=== PATIENT | female | born 1985 | race Two or more races ===

== ENCOUNTER 2025-07-13 05:47 | Inpatient (IN) | payer BC, OTHER ==
[~2025-07-13] VITALS: Ht 162.6 cm; Wt 117.0 kg
--- NOTE | 2025-07-13 06:23 | ED.PDOC ---
GI ASSESSMENT HPI Comments 40 y.o female with PMHx of DM, presents to the ED for a chief complaint of right sided abdominal pain associated with nausea that started one day ago. Patient describes pain as sharp, constant, radiating to her back and rates it a 10/10 on the pain scale. Patient denies any diarrhea, fever, chills, vomiting. 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 ASSISTANT 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: No 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 History Family History Family History: Reviewed,noncontributory to illness Social History Smoker: Non-Smoker Alcohol: Denies ETOH Use Drugs: Denies Drug Use Lives In: Home Constitutional: denies: chills, diaphoresis, fatigue, fever, malaise, sweats, weakness, others EENTM: denies: blurred vision, double vision, ear bleeding, ear discharge, ear drainage, ear pain, ear ringing, eye pain, eye redness, hearing loss, mouth pain, mouth swelling, nasal discharge, nose bleeding, nose congestion, nose pain, photophobia, tearing, throat pain, throat swelling, voice changes, others Respiratory: denies: cough, hemoptysis, orthopnea, SOB at rest, shortness of breath, SOB with excertion, stridor, wheezing, others Cardiovascular: denies: chest pain, dizzy spells, diaphoresis, Dyspnea on exertion, edema, irregular heart beat, left arm pain, lightheadedness, palpitations, PND, syncope, others Gastrointestinal: reports: abdominal pain, nausea; denies: abdomen distended, blood streaked bowels, constipated, diarrhea, dysphagia, difficulty swallowing, hematemesis, melena, poor appetite, poor fluid intake, rectal bleeding, rectal pain, vomiting, others Genitourinary: denies: abnormal vagina bleeding, burning, dyspareunia, dysuria, flank pain, frequency, hematuria, incontinence, pain, , vagina discharge, urgency, others Neurological: denies: dizziness, fainting, headache, left sided numbness, left sided weakness, numbness, paresthesia, pre-existing deficit, right sided numbness, right sided weakness, seizure, speech problems, tingling, tremors, weakness, others Musculoskeletal: denies: back pain, gout, joint pain, joint swelling, muscle pain, muscle stiffness, neck pain, others Integumetry: denies: bruises, change in color, change in hair/nails, dryness, laceration, lesions, lumps, rash, wounds, others Allergic/Immunocompromised: denies: Difficulty Healing, Frequent Infections, Hi ves, Itching, others Hematologic/Lymphatic: denies: anemia, blood clots, easy bleeding, easy bruising, swollen glands, others Endocrine: denies: excessive hunger, excessive sweating, excessive thirst, excessive urination, flushing, intolerance to cold, intolerance to heat, unexplained weight gain, unexplained weight loss, others Psychiatric: denies: anxiety, bipolar disorder, depression, hopeless, panic disorder, schizophrenia, sleepless, suicidal, others All Other Systems: Reviewed and Negative Physical Exam General Appearance: Moderate Distress, Obese HEENT: Normal ENT Inspection, Pharynx Normal, TMs Normal Neck: Full Range of Motion, Non-Tender, Normal, Normal Inspection Respiratory: Chest Non-Tender, Lungs Clear, No Accessory Muscle Use, No Respiratory Distress, Normal Breath Sounds Cardiovascular: No Edema, No JVD, No Murmur, No Gallop, Normal Peripheral Pulses, Regular Rate/Rhythm Breast Exam: Deferred Gastrointestinal: No Organomegaly, Non Tender, No Pulsatile Mass, Normal Bowel Sounds, Soft Genitalia: Deferred Pelvic: Deferred Rectal: Deferred Extremities: No calf tenderness, Normal capillary refill, Normal inspection, Normal range of motion, Non-tender, No pedal edema Musculoskeletal : Apperance: Normal Neurologic: Alert, medical secretary receptionist II-XII nml as Tested, No Motor Deficits, Normal Affect, Normal Mood, No Sensory Deficits Cerebellar Function: Normal Reflexes: Normal Skin: Dry, Normal Color, Warm Peripheral Pulses: 3+ Radial (R), 3+ Radial (L) Lymphatic: No Adenopathy Was a procedure done? Was a procedure done?: No GI differential Dx Differential Diagnosis: Cholecystitis, Constipation, Diverticular disease, Esophagitis, Gastritis/PUD, Gastroenteritis, Dehydration, Kidney Stone Other Differential Diagnosis colitis X-Ray, Labs, Meds, VS Vital Signs Date Time Temp Pulse Resp B/P (MAP) Pulse Ox O2 Delivery O2 Flow Rate FiO2 07/13/25 06:24 97.4 86 14 162/74 (103) 99 97.4 07/13/25 05:52 97.5 88 18 149/83 97 97.5 Patient alert. Came in because of abdominal pain. Vitals stable. Answering questions. Establish intravenous access. Was given fluids. Was given morphine. Was given Zofran. Explained to the patient. Continue monitoring. Time of 1ST Reevaluation: 07:20 Reevaluation 1ST: Unchanged Patient Education/Counseling: Diagnosis, Treatment, Prognosis Family Education/Counseling: No Family Present SEPSIS Sepsis Screen Date sepsis recognized/suspect: Jul 13, 2025 Time Sepsis recognized/suspect: 0552 Recent Procedure: No On Antibiotic Therapy: No Respiratory Rate >20: No Heart Rate >90: No Temp<36 C (96.8 F) or >38.3 C: No SBP <90 or MAP <65 mmHG: No New Acute Mental Status Change: No Is the patient on CPAP, BIPAP,: No Physician Orders Complete Blood Count (07/13/25 06:40) Comprehensive Metabolic Panel (07/13/25 06:40) Urinalysis (07/13/25 06:40) Ondansetron Hcl (Zofran) (07/13/25 06:45) Sodium Chloride 0.9% (07/13/25 06:45) Morphine Sulfate Injection (07/13/25 06:45) Vital Signs Date Time Temp Pulse Resp B/P (MAP) Pulse Ox O2 Delivery O2 Flow Rate FiO2 07/13/25 06:24 97.4 86 14 162/74 (103) 99 97.4 07/13/25 05:52 97.5 88 18 149/83 97 97.5 Departure 1 Departure Time of Disposition: 06:43 Impression: Primary Impression: Acute abdominal pain Disposition: ADMITTED INPATIENT Admit to: Med Surg Condition: Guarded Critical Care Note Critical Care Time?: No Stability Stability form required: No I personally scribed for ANTONINO MENDEZ MD ([email or web address]) on 07/13/25 at 06:23. Electronically submitted by Ro Leach ([facility]). ANTONINO MENDEZ MD Jul 13, 2025 06:23
[2025-07-13] MEDS: SODIUM CHLORIDE 0.9% 1,000 ML IVB ONE (06:45)
[2025-07-13] MEDS: ONDANSETRON HCL 4 MG/2 ML VIAL IV ONE (06:45)
[2025-07-13] MEDS: MORPHINE SULFATE 4 MG/ML SYR/VIAL IV ONE (06:46)
[2025-07-13 06:58] LABS: Hematocrit 35.5 % (36.0-46.0); Hemoglobin 11.7 g/dL (12.2-16.2); Mean Corpuscular Hemoglobin 26.0 pg (28.0-32.0); Mean Corpuscular Volume 79.0 fL (80.0-100.0); Nucleated Red Blood Cells % 0.0 %
[2025-07-13 07:17] LABS: Alanine Aminotransferase 16 U/L (7-40); Albumin 4.4 g/dL (3.2-4.8); Alkaline Phosphatase 133 U/L (46-116); Anion Gap 10 (5-15); BUN/Creatinine Ratio 16.0 (10.0-20.0); Bilirubin, Total 0.2 mg/dL (0.2-1.0); Blood Urea Nitrogen 15 mg/dL (9-23); Calcium 9.5 mg/dL (8.7-10.4); Carbon Dioxide 25 mmol/L (20-31); Chloride 101 mmol/L (98-107); Glucose 270 mg/dL (74-106); Potassium 4.2 mmol/L (3.5-5.1); Sodium 136 mmol/L (136-145); Total Protein 7.5 g/dL (5.7-8.2)
[2025-07-13 07:45] VITALS: PULSE 87; RESP 17
[2025-07-13 08:35] LABS: Urine Protein, UAD 1+ (Negative)
[2025-07-13] MEDS: KETOROLAC TROMETH 30 MG/ML 1ML VIAL IV ONE (08:54)
--- NOTE | 2025-07-13 10:25 | DVH ---
ULTRASOUND ABDOMEN, LIMITED RIGHT UPPER QUADRANT: REASON FOR EXAM: rene. Right upper quadrant pain. TECHNIQUE: Real-time sector scans in the transverse and longitudinal planes were obtained through th e right upper quadrant of the abdomen. FINDINGS: The liver is of normal size and contour. There is hepatopetal flow in the portal vein. The re is no intrahepatic nor extrahepatic biliary ductal dilatation. The common bile duct measures 7 mm . There are multiple shadowing stones identified within the gallbladder. The gallbladder wall is thi ckened at 4 mm. There is no sonographic Banks's sign. The pancreas is obscured by bowel gas. The right kidney measures 10.6 cm. No hydronephrosis or nephrolithiasis is identified. There is no evidence of right renal mass or cyst. The visualized portions of the abdominal aorta demonstrate no evidence of aneurysmal dilatation. The visualized inferior vena cava is unremarkable. There is no free fluid identified in the right upper quadrant. IMPRESSION: Cholelithiasis with mild gallbladder wall thickening. No sonographic banks's sign. Correlate clinic ally for possible acute cholecystitis. Nuclear medicine HIDA scan may be helpful.
--- NOTE | 2025-07-13 11:41 | DVHHP2 ---
History of Present Illness History of Present Illness 40 y.o female with PMHx of DM, presents to the ED for a chief complaint of right sided abdominal pain associated with nausea that started one day ago. Patient had meal from outside, few hours later pain started, intractable. Patient describes pain as sharp, constant, radiating to her back and rates it a 10/10 on the pain scale. Patient had associated nausea but no vomiting. She has had similar pain before but not this intensity. Patient denies any diarrhea, fever, chills, vomiting. Review of Systems Constitutional: No: Fever, Chills, Sweats, Weakness, Malaise, Other Respiratory: No: Cough, Dry, Shortness of breath, SOB with excertion, Wheezing, Hemoptysis, Pleuritic Pain, Sputum, Wheezing, Other Cardiovascular: No: Chest Pain, Palpitations, Orthopnea, Paroxysmal Noc. Dyspnea, Edema, Lt Headedness, Other Gastrointestinal: Nausea, Abdominal Pain Allergies: Coded Allergies: NO KNOWN ALLERGIES (Unverified , 07/13/25) Exam Vital Signs Vital Signs Date Time Temp Pulse Resp B/P (MAP) Pulse Ox O2 Delivery O2 Flow Rate FiO2 07/13/25 09:00 89 17 165/57 (93) 99 07/13/25 07:45 97.9 97.9 07/13/25 07:45 Room Air* 0 21 Exam GEN: Healthy appearing, well-developed, NAD. HEENT: NC/AT; MMM. CV: RRR, no m/r/g. LUNGS: CTAB, no w/r/c. ABD: Mild right upper quadrant pain, mild tender to palpation, hypoactive bowel sounds, EXT: skin Warm, well perfused. no rashes. No clubbing, cyanosis, or edema. NEURO: Ambulating with no limitations. No focal deficits. Labs/Xrays Labs Test 07/13/25 08:15 07/13/25 06:40 Range/Units Urine Color Colorless Yellow Urine Clarity Turbid H Clear Urine pH 6.5 5.0-9.0 Urine Specific [place] 1.011 1.001-1.035 Urine Protein 1+ H Negative Urine Ketones Negative Negative Urine Blood 1+ H Negative /uL Urine Nitrite Negative Negative Urine Bilirubin Negative Negative Urine Urobilinogen Normal Negative mg/dL Urine Leukocyte Esterase Trace Negative /uL Urine RBC 2 0 - 4 /hpf Urine Microscopic WBC 2 0-5 /HPF Urine Squamous Epithelial Cells Few <5 /hpf Urine Bacteria Few H None Seen /hpf Urine Mucus Few None Seen Urine Glucose 3+ H Normal mg/dL Urine Test Negative Negative White Blood Count 11.7 H 4.4-10.8 10^3/uL Red Blood Count 4.49 4.0-5.20 10^6/uL Hemoglobin 11.7 L 12.2-16.2 g/dL Hematocrit 35.5 L 36.0-46.0 % Mean Corpuscular Volume 79.0 L 80.0-100.0 fL Mean Corpuscular Hemoglobin 26.0 L 28.0-32.0 pg Mean Corpuscular Hemoglobin Concent 33.0 32.0-36.0 g/dL Red Cell Distribution Width 14.9 H 11.8-14.3 % Platelet Count 397 140-450 10^3/uL Mean Platelet Volume 8.4 6.9-10.8 fL Neutrophils (%) (Auto) 73.7 37.0-80.0 % Lymphocytes (%) (Auto) 14.9 10.0-50.0 % Monocytes (%) (Auto) 6.1 0.0-12.0 % Eosinophils (%) (Auto) 3.8 0.0-7.0 % Basophils (%) (Auto) 1.5 0.0-2.0 % Neutrophils # (Auto) 8.6 1.6-8.6 10 ^3/uL Lymphocytes # (Auto) 1.7 0.4-5.4 10 ^3/uL Monocytes # (Auto) 0.7 0-1.3 10 ^3/uL Eosinophils # (Auto) 0.4 0-0.8 10 ^3/uL Basophils # (Auto) 0.2 0-0.2 10 ^3/uL Nucleated Red Blood Cells 0.0 % Sodium Level 136 136-145 mmol/L Potassium Level 4.2 3.5-5.1 mmol/L Chloride Level 101 98-107 mmol/L Carbon Dioxide Level 25 20-31 mmol/L Anion Gap 10 5-15 Blood Urea Nitrogen 15 9-23 mg/dL Creatinine 0.94 0.550-1.02 mg/dL Glomerular Filtration Rate Calc 80 >90 mL/min BUN/Creatinine Ratio 16.0 10.0-20.0 Serum Glucose 270 H 74-106 mg/dL Calcium Level 9.5 8.7-10.4 mg/dL Total Bilirubin 0.2 0.2-1.0 mg/dL Aspartate Amino Transferase (AST) 18 13-40 U/L Alanine Aminotransferase (ALT) 16 7-40 U/L Alkaline Phosphatase 133 H 46-116 U/L Total Protein 7.5 5.7-8.2 g/dL Albumin 4.4 3.2-4.8 g/dL SEPSIS Sepsis Screen Date sepsis recognized/suspect: Jul 13, 2025 Time Sepsis recognized/suspect: 744 Recent Procedure: No On Antibiotic Therapy: No Respiratory Rate >20: No Heart Rate >90: No Temp<36 C (96.8 F) or >38.3 C: No SBP <90 or MAP <65 mmHG: No New Acute Mental Status Change: No Is the patient on CPAP, BIPAP,: No Physician Orders Gallbladder (07/13/25 08:58) Vital Signs Date Time Temp Pulse Resp B/P (MAP) Pulse Ox O2 Delivery O2 Flow Rate FiO2 07/13/25 09:00 89 17 165/57 (93) 99 07/13/25 08:49 165/57 07/13/25 07:49 200/110 07/13/25 07:45 97.9 87 17 200/110 (140) 99 97.9 07/13/25 07:45 87 17 Room Air* 0 21 07/13/25 07:30 87 17 200/110 07/13/25 06:46 84 11 162/74 07/13/25 06:24 97.4 86 14 162/74 (103) 99 97.4 07/13/25 05:52 97.5 88 18 149/83 97 97.5 Laboratory Tests Test 07/13/25 06:40 White Blood Count 11.7 10^3/uL (4.4-10.8) H Medications Medications Dose Ordered Sig/Eduardo Route Start Time Stop Time Status Last Admin Dose Admin Clonidine HCl 0.1 mg ONCE ONCE PO 07/13/25 07:45 07/13/25 07:46 DC 07/13/25 07:49 0.1 MG Ketorolac Tromethamine 30 mg ONCE ONCE IV 07/13/25 09:00 07/13/25 09:01 DC 07/13/25 08:54 30 MG Morphine Sulfate 4 mg ONCE ONCE IV 07/13/25 06:45 07/13/25 06:46 DC 07/13/25 06:46 4 MG Ondansetron HCl 4 mg ONCE ONCE IV 07/13/25 06:45 07/13/25 06:46 DC 07/13/25 06:45 4 MG Sodium Chloride 1,000 ml @ 1,000 mls/hr Q1H ONCE IVB 07/13/25 06:45 07/13/25 07:44 DC 07/13/25 06:45 1,000 MLS/HR Assessment/Plan Assessment/Plan 07/13 patient had outside meal, Boogie cooked, later has pain intractable 10/10 right upper quadrant. Banks sign negative, ultrasound done concern for cholelithiasis with gallbladder wall edema. Symptomatic cholelithiasis Intractable abdominal pain due to above Leukocytosis Anemia, microcytic, Tomas likely Diabetes with hyperglycemia ALP elevated Asymptomatic bacteriuria Glucosuria Hypertension, uncontrolled Plan: IV antibiotics Prn pain control Prn antiemetics Surgical consult Tele Full code Plan discussed with: Patient Date of Service: Jul 13, 2025 Billing Provider: DEEPA GARCIA MD Common Visit Codes: [id number] INP/OBS CARE (HIGH) Secondary Visit Codes: [id number] CARE PLAN 30 MINUTES DEEPA GARCIA MD Jul 13, 2025 11:41
[2025-07-13] MEDS ORDERED: MORPHINE SULFATE INJ 2 MG/ml SYRG IV PRN (11:45)
[2025-07-13] MEDS ORDERED: ACETAMINOPHEN 325 MG TAB PO PRN (11:45)
[2025-07-13] MEDS ORDERED: ONDANSETRON HCL 4 MG/2 ML VIAL IV PRN (11:45)
[2025-07-13 14:41] VITALS: BP 134/86; PULSE 94; RESP 18; TEMP 98.6; O2SAT 96
[2025-07-13] MEDS: LACTATED RINGER'S 1,000 ML IV ONE (15:19)
[2025-07-13 17:00] VITALS: BP 150/86; PULSE 98; RESP 19; TEMP 98.5; O2SAT 96
[2025-07-13 20:00] VITALS: PULSE 118; PULSE 97; RESP 16; O2SAT 96
[2025-07-13] MEDS: HYDROcodone-ACET 5/325MG TAB PO PRN (20:05)
[2025-07-13 21:00] VITALS: BP 120/73; PULSE 97; RESP 16; TEMP 98.2; O2SAT 96
[2025-07-14] VITALS (8 sets, daily range): BP systolic 116–165; BP diastolic 70–89; PULSE 93–111; RESP 16–19; TEMP 96.6–100.8; O2SAT 94–96
[2025-07-14 07:02] LABS: Hematocrit 30.3 % (36.0-46.0); Hemoglobin 10.3 g/dL (12.2-16.2); Mean Corpuscular Hemoglobin 26.9 pg (28.0-32.0); Nucleated Red Blood Cells % 0.0 %
[2025-07-14 07:06] LABS: Mean Corpuscular Volume 79.0 fL (80.0-100.0)
[2025-07-14 07:18] LABS: Alanine Aminotransferase 14 U/L (7-40); Albumin 3.8 g/dL (3.2-4.8); Alkaline Phosphatase 107 U/L (46-116); Anion Gap 9 (5-15); BUN/Creatinine Ratio 12.0 (10.0-20.0); Blood Urea Nitrogen 9 mg/dL (9-23); Calcium 8.7 mg/dL (8.7-10.4); Carbon Dioxide 22 mmol/L (20-31); Chloride 105 mmol/L (98-107); Potassium 4.1 mmol/L (3.5-5.1); Total Protein 6.6 g/dL (5.7-8.2)
[2025-07-14 07:20] LABS: Bilirubin, Total 0.3 mg/dL (0.2-1.0); Glucose 199 mg/dL (74-106); Sodium 136 mmol/L (136-145)
[2025-07-14] MEDS: ENOXAPARIN SOD 40 MG/0.4 ML SYRINGE SC SCH (08:36)
--- NOTE | 2025-07-14 09:53 | DVHINCON2 ---
Date of service: Jul 14, 2025 Family History: Diabetes mellitus G8 FATHER FHx: leukemia Aunt Hypertension G8 FATHER Allergies: Coded Allergies: NO KNOWN ALLERGIES (Unverified , 07/13/25) Current Medications Current Medications Medications (Trade) Dose Ordered Sig/Eduardo Route PRN Reason Start Time Stop Time Status Last Admin Acetaminophen/ Hydrocodone Bitart ([place] 5/325MG Tab) 1 tab Q4HP PRN PO MODERATE PAIN (4-6 PAIN SCALE) 07/13/25 11:45 07/14/25 08:37 Ondansetron HCl (Zofran) 4 mg Q4HP PRN IV NAUSEA / VOMITING 07/13/25 11:45 Enoxaparin Sodium (Lovenox) 40 mg DAILY SC 07/14/25 10:00 07/14/25 08:36 Acetaminophen (Tylenol Tablet) 650 mg Q6HP PRN PO PAIN SCALE 1-3 OR TEMP>100.4 07/13/25 11:45 Morphine Sulfate 2 mg Q4HPRN PRN IV SEVERE PAIN (7-10 PAIN SCALE) 07/13/25 11:45 Vital Signs Vital Signs Date Time Temp Pulse Resp B/P (MAP) Pulse Ox O2 Delivery O2 Flow Rate FiO2 07/14/25 09:00 98.9 94 18 128/70 (89) 96 98.9 07/13/25 20:00 Room Air* 0 21 Labs/Diagnostic Data Labs Test 07/14/25 06:22 07/13/25 08:15 Range/Units White Blood Count 14.9 #H 4.4-10.8 10^3/uL Red Blood Count 3.83 L 4.0-5.20 10^6/uL Hemoglobin 10.3 L 12.2-16.2 g/dL Hematocrit 30.3 #L 36.0-46.0 % Mean Corpuscular Volume 79.0 L 80.0-100.0 fL Mean Corpuscular Hemoglobin 26.9 L 28.0-32.0 pg Mean Corpuscular Hemoglobin Concent 34.0 32.0-36.0 g/dL Red Cell Distribution Width 15.1 H 11.8-14.3 % Platelet Count 350 140-450 10^3/uL Mean Platelet Volume 8.2 6.9-10.8 fL Neutrophils (%) (Auto) 79.7 37.0-80.0 % Lymphocytes (%) (Auto) 9.9 L 10.0-50.0 % Monocytes (%) (Auto) 8.5 0.0-12.0 % Eosinophils (%) (Auto) 1.6 0.0-7.0 % Basophils (%) (Auto) 0.3 0.0-2.0 % Neutrophils # (Auto) 11.9 H 1.6-8.6 10 ^3/uL Lymphocytes # (Auto) 1.5 0.4-5.4 10 ^3/uL Monocytes # (Auto) 1.3 0-1.3 10 ^3/uL Eosinophils # (Auto) 0.2 0-0.8 10 ^3/uL Basophils # (Auto) 0 0-0.2 10 ^3/uL Nucleated Red Blood Cells 0.0 % Sodium Level 136 136-145 mmol/L Potassium Level 4.1 3.5-5.1 mmol/L Chloride Level 105 98-107 mmol/L Carbon Dioxide Level 22 20-31 mmol/L Anion Gap 9 5-15 Blood Urea Nitrogen 9 9-23 mg/dL Creatinine 0.75 0.550-1.02 mg/dL Glomerular Filtration Rate Calc 104 >90 mL/min BUN/Creatinine Ratio 12.0 10.0-20.0 Serum Glucose 199 H 74-106 mg/dL Calcium Level 8.7 8.7-10.4 mg/dL Total Bilirubin 0.3 0.2-1.0 mg/dL Aspartate Amino Transferase (AST) 16 13-40 U/L Alanine Aminotransferase (ALT) 14 7-40 U/L Alkaline Phosphatase 107 46-116 U/L Total Protein 6.6 5.7-8.2 g/dL Albumin 3.8 3.2-4.8 g/dL Urine Color Colorless Yellow Urine Clarity Turbid H Clear Urine pH 6.5 5.0-9.0 Urine Specific [place] 1.011 1.001-1.035 Urine Protein 1+ H Negative Urine Ketones Negative Negative Urine Blood 1+ H Negative /uL Urine Nitrite Negative Negative Urine Bilirubin Negative Negative Urine Urobilinogen Normal Negative mg/dL Urine Leukocyte Esterase Trace Negative /uL Urine RBC 2 0 - 4 /hpf Urine Microscopic WBC 2 0-5 /HPF Urine Squamous Epithelial Cells Few <5 /hpf Urine Bacteria Few H None Seen /hpf Urine Mucus Few None Seen Urine Glucose 3+ H Normal mg/dL Urine Test Negative Negative Assessment 40 year old female with oral drug controlled diabetes, had a prior toe amputa tion, now with symptomatic cholelithiasis, cholecystectomy (laparoscpic vs open) risks and complications explained in detail. Plan discussed with: Patient DANIELLE FONTAINE MD Jul 14, 2025 09:53
[2025-07-14] MEDS: LACTATED RINGER'S 1,000 ML IV SCH (10:00)
--- NOTE | 2025-07-14 10:47 | DVHPN2 ---
Subjective Seen at bedside today, symptoms improving. Reviewed: H&P Changes from previous H/P or p: No Changes General: Per HPI Cardiovascular: No Chest Pain, No Palpitations, No Orthopnea, No Paroxysmal Noc. Dyspnea, No Edema, No Lt Headedness, No Other Respiratory: No Cough, No Dry, No Shortness of breath, No SOB with excertion, No Wheezing, No Hemoptysis, No Pleuritic Pain, No Sputum, No Other Gastrointestinal: Nausea, Abdominal Pain Objective Vitals Vital Signs Date Time Temp Pulse Resp B/P (MAP) Pulse Ox O2 Delivery O2 Flow Rate FiO2 07/14/25 09:00 98.9 94 18 128/70 (89) 96 98.9 07/13/25 20:00 Room Air* 0 21 Intake/Output Intake and Output 07/14/25 07:00 Intake Total 1810 ml Balance 1810 ml Intake Oral 760 ml IV Total 1050 ml # Voids 1 Exam GEN: Healthy appearing, well-developed, NAD. HEENT: NC/AT; MMM. CV: RRR, no m/r/g. LUNGS: CTAB, no w/r/c. ABD: Mild right upper quadrant pain, mild tender to palpation, hypoactive bowel sounds, EXT: skin Warm, well perfused. no rashes. No clubbing, cyanosis, or edema. NEURO: Ambulating with no limitations. No focal deficits. Medications Current Medications Medications Dose Ordered Sig/Eduardo Route Start Time Stop Time Status Last Admin Dose Admin Acetaminophen/ Hydrocodone Bitart 1 tab Q4HP PRN PO 07/13/25 11:45 07/14/25 08:37 1 TAB Ondansetron HCl 4 mg Q4HP PRN IV 07/13/25 11:45 Acetaminophen 650 mg Q6HP PRN PO 07/13/25 11:45 Morphine Sulfate 2 mg Q4HPRN PRN IV 07/13/25 11:45 Lactated Ringer's 1,000 ml @ 100 mls/hr Q10H IV 07/14/25 10:00 Laboratory Results Laboratory Tests 07/14/25 06:22 Chemistry Test 07/14/25 06:22 Albumin 3.8 g/dL (3.2-4.8) Calcium Level 8.7 mg/dL (8.7-10.4) Total Protein 6.6 g/dL (5.7-8.2) LFT Test 07/14/25 06:22 Alanine Aminotransferase (ALT) 14 U/L (7-40) Alkaline Phosphatase 107 U/L (46-116) Aspartate Amino Transferase (AST) 16 U/L (13-40) Total Bilirubin 0.3 mg/dL (0.2-1.0) Urinalysis Test 07/13/25 08:15 Urine Color Colorless (Yellow) Urine Clarity Turbid (Clear) H Urine pH 6.5 (5.0-9.0) Urine Specific [place] 1.011 (1.001-1.035) Urine Protein 1+ (Negative) H Urine Ketones Negative (Negative) Urine Blood 1+ /uL (Negative) H Urine Nitrite Negative (Negative) Urine Bilirubin Negative (Negative) Urine Urobilinogen Normal mg/dL (Negative) Urine Leukocyte Esterase Trace /uL (Negative) Urine RBC 2 /hpf (0 - 4) Urine Microscopic WBC 2 /HPF (0-5) Urine Squamous Epithelial Cells Few /hpf (<5) Urine Bacteria Few /hpf (None Seen) H Urine Mucus Few (None Seen) Urine Glucose 3+ mg/dL (Normal) H Urine Test Negative (Negative) Labs and/or images reviewed: Labs reviewed by me, Image(s) reviewed by me Assessment/Plan Assessment/Plan 07/13 patient had outside meal, Boogie cooked, later has pain intractable 10/10 right upper quadrant. Banks sign negative, ultrasound done concern for cholelithiasis with gallbladder wall edema. 07/14: Surgery has evaluated the patient and no deciding for cholecystectomy. NPO midnight. Continue IV antibiotics, is no pulmonary disease or history of, RCRI score low, DA SI score low, pending EKG otherwise cleared for surgery. Diagnosis: Symptomatic cholelithiasis Intractable abdominal pain due to above Leukocytosis Anemia, microcytic, Tomas likely Diabetes with hyperglycemia ALP elevated Asymptomatic bacteriuria Glucosuria Hypertension, uncontrolled Plan: IV antibiotics Prn pain control Prn antiemetics Surgical consult Tele Full code Plan discussed with: Patient My Orders Orders - DEEPA GARCIA MD Procedure Category Date Status Time Admit ADMIT 07/13/25 Transmitted 11:36 Allergies GRAEME 07/13/25 In Process 11:36 Code Status CODE 07/13/25 Transmitted 11:36 Full Liq Diet DIET 07/13/25 Transmitted Lunch Hydrocodone-Acet PHA 07/13/25 In Process 5/325mg Tab ([place] 11:45 Ondansetron Hcl PHA 07/13/25 In Process (Zofran) 11:45 Acetaminophen Tablet PHA 07/13/25 In Process (Tylenol Tablet) 11:45 Bedrest With Bathroom GRAEME 07/13/25 In Process Privileg 11:36 Morphine Sulfate PHA 07/13/25 In Process Injection 11:45 * Surgical Consult CONS 07/13/25 Transmitted Date of Service: Jul 14, 2025 Billing Provider: DEEPA GARCIA MD Common Visit Codes: [id number] INP/OBS CARE(HIGH) DEEPA GARCIA MD Jul 14, 2025 10:47
[2025-07-14 11:28] LABS: INR 1.05 (0.9-1.15); Partial Thromboplastin Time 37.9 SEC (24.5-34.5); Prothrombin Time 11.1 sec (9.3-11.8)
--- NOTE | 2025-07-14 11:38 | ECG ---
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
[2025-07-15] VITALS (9 sets, daily range): BP systolic 132–159; BP diastolic 79–87; PULSE 85–104; RESP 12–18; TEMP 96.4–98.9; O2SAT 92–98
[2025-07-15 07:53] LABS: Hematocrit 31.4 % (36.0-46.0); Hemoglobin 10.4 g/dL (12.2-16.2); Mean Corpuscular Hemoglobin 26.6 pg (28.0-32.0); Mean Corpuscular Volume 80.0 fL (80.0-100.0); Nucleated Red Blood Cells % 0.1 %
[2025-07-15 08:08] LABS: Alanine Aminotransferase 14 U/L (7-40); Albumin 4.2 g/dL (3.2-4.8); Anion Gap 12 (5-15); BUN/Creatinine Ratio 9.3 (10.0-20.0); Calcium 9.1 mg/dL (8.7-10.4); Carbon Dioxide 23 mmol/L (20-31); Chloride 101 mmol/L (98-107); Potassium 3.8 mmol/L (3.5-5.1); Sodium 136 mmol/L (136-145); Total Protein 7.4 g/dL (5.7-8.2)
[2025-07-15 08:09] LABS: Bilirubin, Total 0.3 mg/dL (0.2-1.0)
[2025-07-15 08:10] LABS: Alkaline Phosphatase 124 U/L (46-116); Blood Urea Nitrogen 7 mg/dL (9-23); Glucose 162 mg/dL (74-106)
[2025-07-15] MEDS ORDERED: ceFAZolin 2 GM/D5W50ml 50 ML IV ONE (08:39)
[2025-07-15] MEDS ORDERED: fentaNYL CITRATE 100 MCG/2 ML VL ONE (08:47)
[2025-07-15] MEDS ORDERED: HYDROmorphone HCL 2 MG/ML VL/or syr ONE (08:47)
[2025-07-15] MEDS ORDERED: GLYCOPYRROLATE 0.2 MG/ML 1ML VIAL ONE (08:48)
[2025-07-15] MEDS ORDERED: KETOROLAC TROMETH 30 MG/ML 1ML VIAL ONE (08:48)
[2025-07-15] MEDS ORDERED: ONDANSETRON HCL 4 MG/2 ML VIAL ONE (08:48)
[2025-07-15] MEDS ORDERED: PROPOFOL 10 MG/ML 20 ML IV ONE (08:48)
[2025-07-15] MEDS ORDERED: SUGAMMADEX 200mg/2ml Vial (100MG/ML) IV ONE (08:48)
[2025-07-15] MEDS ORDERED: LIDOCAINE 2% (LOCAL ANESTH.) PF 5ml SDV ONE (08:48)
[2025-07-15] MEDS ORDERED: ROCURONIUM 10MG/ML 10ML VIAL IV ONE (08:48)
[2025-07-15] MEDS ORDERED: MIDAZOLAM HCL 2MG/2ML 2ml VIAL (1mg/ml) ONE (08:48)
[2025-07-15] MEDS ORDERED: LIDOCAINE W/ EPINEPHRINE 1% 20ML VIAL ONE (09:44)
[2025-07-15] MEDS ORDERED: BUPIVACAINE 0.25% INJ 50ML VIAL ONE (09:44)
[2025-07-15] MEDS ORDERED: HYDROmorphone HCL 2 MG/ML VL/or syr IV PRN ×2 (12:00)
[2025-07-15] MEDS ORDERED: ONDANSETRON HCL 4 MG/2 ML VIAL IV PRN (12:00)
[2025-07-15] MEDS: ACETAMINOPHEN IV 1000 MG/100ML (10MG/ML) IV ONE (12:00)
[2025-07-15] MEDS: SOD CHL 0.45% WITH 20MEQ KCL 1,000 ML IV SCH (12:00)
--- NOTE | 2025-07-15 12:10 | DVHPN2 ---
Subjective Seen at bedside today, symptoms improving. Reviewed: H&P Changes from previous H/P or p: No Changes General: Per HPI Cardiovascular: No Chest Pain, No Palpitations, No Orthopnea, No Paroxysmal Noc. Dyspnea, No Edema, No Lt Headedness, No Other Respiratory: No Cough, No Dry, No Shortness of breath, No SOB with excertion, No Wheezing, No Hemoptysis, No Pleuritic Pain, No Sputum, No Other Gastrointestinal: Nausea, Abdominal Pain Objective Vitals Vital Signs Date Time Temp Pulse Resp B/P (MAP) Pulse Ox O2 Delivery O2 Flow Rate FiO2 07/15/25 09:08 98.7 90 16 141/84 (103) 96 98.7 07/14/25 20:00 Room Air* 0 21 Intake/Output Intake and Output 07/15/25 07:00 Intake Total 4290 ml Balance 4290 ml Intake Oral 3340 ml IV Total 950 ml # Voids 7 Exam GEN: Healthy appearing, well-developed, NAD. HEENT: NC/AT; MMM. CV: RRR, no m/r/g. LUNGS: CTAB, no w/r/c. ABD: Mild right upper quadrant pain, mild tender to palpation, hypoactive bowel sounds, EXT: skin Warm, well perfused. no rashes. No clubbing, cyanosis, or edema. NEURO: Ambulating with no limitations. No focal deficits. Medications Current Medications Medications Dose Ordered Sig/Eduardo Route Start Time Stop Time Status Last Admin Dose Admin Acetaminophen/ Hydrocodone Bitart 1 tab Q4HP PRN PO 07/13/25 11:45 07/14/25 08:37 1 TAB Ondansetron HCl 4 mg Q4HP PRN IV 07/13/25 11:45 Acetaminophen 650 mg Q6HP PRN PO 07/13/25 11:45 Morphine Sulfate 2 mg Q4HPRN PRN IV 07/13/25 11:45 Lactated Ringer's 1,000 ml @ 100 mls/hr Q10H IV 07/14/25 10:00 07/15/25 01:40 100 MLS/HR Potassium Chloride/Sodium Chloride 1,000 ml @ 120 mls/hr Q8H20M IV 07/15/25 12:00 UNV Cefazolin Sodium/ Dextrose 50 ml @ 50 mls/hr Q8HR IV 07/15/25 14:00 UNV Metronidazole 100 ml @ 100 mls/hr Q8HR IV 07/15/25 14:00 UNV Hydromorphone HCl 2 mg Q4HPRN PRN IV 07/15/25 12:00 UNV Ondansetron HCl 4 mg ONCE PRN IV 07/15/25 12:00 07/15/25 12:01 UNV Hydromorphone HCl 0.5 mg Q10M PRN IV 07/15/25 12:00 07/15/25 12:41 UNV Laboratory Results Laboratory Tests 07/15/25 06:40 Chemistry Test 07/15/25 06:40 Albumin 4.2 g/dL (3.2-4.8) Calcium Level 9.1 mg/dL (8.7-10.4) Total Protein 7.4 g/dL (5.7-8.2) LFT Test 07/15/25 06:40 Alanine Aminotransferase (ALT) 14 U/L (7-40) Alkaline Phosphatase 124 U/L (46-116) H Aspartate Amino Transferase (AST) 18 U/L (13-40) Total Bilirubin 0.3 mg/dL (0.2-1.0) Urinalysis Test 07/13/25 08:15 Urine Color Colorless (Yellow) Urine Clarity Turbid (Clear) H Urine pH 6.5 (5.0-9.0) Urine Specific [place] 1.011 (1.001-1.035) Urine Protein 1+ (Negative) H Urine Ketones Negative (Negative) Urine Blood 1+ /uL (Negative) H Urine Nitrite Negative (Negative) Urine Bilirubin Negative (Negative) Urine Urobilinogen Normal mg/dL (Negative) Urine Leukocyte Esterase Trace /uL (Negative) Urine RBC 2 /hpf (0 - 4) Urine Microscopic WBC 2 /HPF (0-5) Urine Squamous Epithelial Cells Few /hpf (<5) Urine Bacteria Few /hpf (None Seen) H Urine Mucus Few (None Seen) Urine Glucose 3+ mg/dL (Normal) H Urine Test Negative (Negative) Labs and/or images reviewed: Labs reviewed by me, Image(s) reviewed by me Assessment/Plan Assessment/Plan 07/13 patient had outside meal, Boogie cooked, later has pain intractable 10/10 right upper quadrant. Banks sign negative, ultrasound done concern for cholelithiasis with gallbladder wall edema. 07/14: Surgery has evaluated the patient and no deciding for cholecystectomy. NPO midnight. Continue IV antibiotics, is no pulmonary disease or history of, RCRI score low, DA SI score low, pending EKG otherwise cleared for surgery. 07/15: Patient NPO from midnight, taken for cholecystectomy with surgical services today. We will follow up afterwards, defer diet continuation post surgery to surgery. Diagnosis: Symptomatic cholelithiasis Intractable abdominal pain due to above Leukocytosis Anemia, microcytic, Tomas likely Diabetes with hyperglycemia ALP elevated Asymptomatic bacteriuria Glucosuria Hypertension, uncontrolled Plan: IV antibiotics Prn pain control Prn antiemetics Surgical consult Tele Full code Plan discussed with: Patient Date of Service: Jul 15, 2025 Billing Provider: DEEPA GARCIA MD Common Visit Codes: [id number] INP/OBS CARE(HIGH) DEEPA GARCIA MD Jul 15, 2025 12:10
--- NOTE | 2025-07-15 12:32 | DVHOP ---
DATE OF SURGERY: 07/15/2025 PREOPERATIVE DIAGNOSES: * Cholelithiasis. * Cholecystitis. POSTOPERATIVE DIAGNOSES: * Cholelithiasis. * Cholecystitis. SURGEON: Tigre Alvarenga MD HOSPITAL PRODUCT SPECIALIST: Benjamin Fontaine NP ANESTHESIA: General endotracheal, Dr. Damian. PROCEDURES: * Laparoscopy. * Laparoscopic cholecystectomy. DESCRIPTION OF PROCEDURE: Under general endotracheal anesthesia with the patient's skin was prepped and draped, a supraumbilical incision was made and Veress needle inserted into the peritoneal cavity by the hanging drop technique in order to establish pneumoperitoneum to 15 mmHg pressure by insufflation with carbon dioxide. With the abdomen fully distended, the needle was removed and replaced with a 5 mm trocar port, through which a 0-degree viewing laparoscope was inserted; and under direct vision, additional 5 and 10 mm ports inserted through the right anterior axillary line at the level of the umbilicus and through the subxiphoid midline skin respectively. Instrumentation was introduced. Laparoscopy revealed no obvious unexpected pathology on the serosal surfaces visualized. Morbid obesity made the procedure quite challenging. Much intraabdominal adiposity interfered with visualization. However, the gallbladder was found to be acutely inflamed and patchy areas of gangrene in the wall necessitated aspiration of the ,which was then submitted for cultures and sensitivity. Subsequently, the omental cake was stripped off of the gallbladder and the gallbladder was mobilized in such a way as to visualize the cystic duct and cystic artery. These structures were circumferentially dissected and skeletonized, traced into the hepatocystic triangle so as to minimize the potential for inadvertent injury to the common bile duct. The cystic duct and cystic artery were then divided by metallic clips close to the gallbladder again trying to avoid inadvertent injury to the common bile duct. Following division of the cystic duct and cystic artery, the gallbladder resected from its liver bed. The gallbladder was almost entirely intrahepatic and it was dissected with greater difficulty denuding some of the liver bed. The massively distended gallbladder occupied by huge things was then removed from the subxiphoid incision, which had to be enlarged to facilitate removal of the gallbladder. Subhepatic space was irrigated. Irrigant was aspirated. Hemostasis was meticulously inspected and found to be complete. A 10 mm Price-Rivera drain was placed underneath the right lobe of the liver and exteriorized through the right 5 mm port site and secured with a 2-0 nylon suture. Following assurance of complete hemostasis, the abdomen was desufflated. Instrumentation was withdrawn. Fascial defect closed using 0 Vicryl. Metallic skin connor approximating the skin. The patient remained hemodynamically stable throughout the procedure and left the operating room following an accurate needle and sponge counts. Her brother, Eugenio, was thoroughly informed by calling [phone]. MD YULIA Ling/LASHONDA/ROBE TID: [id number] RECEIPT: [id number]
[2025-07-15] MEDS ORDERED: ROSU20TA56 PO (13:17)
[2025-07-15] MEDS ORDERED: METF-1145 PO (13:17)
[2025-07-15] MEDS ORDERED: ERGO1CAP12 PO (13:17)
[2025-07-15] MEDS: ceFAZolin 2 GM/D5W50ml 50 ML IV ONE (15:57)
[2025-07-15] MEDS ORDERED: DEXTROSE (50%) 50ML SYRG IV PRN (16:00)
[2025-07-15] MEDS: ceFAZolin 2 GM/D5W50ml 50 ML IV SCH (17:45)
[2025-07-15] MEDS: InsuLIN REG 1unit/0.01ml Soln (100units/ml) ONE (18:59)
[2025-07-15] MEDS: ACCU-CHEK COMFORT CURVE STRIP VI SCH (21:05)
[2025-07-15] MEDS: InsuLIN REG 1unit/0.01ml Soln (100units/ml) SC SCH (21:07)
[2025-07-16 01:00] VITALS: BP 135/83; PULSE 79; RESP 18; TEMP 98; O2SAT 93
[2025-07-16 05:00] VITALS: BP 134/81; PULSE 69; RESP 18; TEMP 97.9; O2SAT 93
[2025-07-16 08:00] VITALS: PULSE 86; PULSE 87; O2SAT 98
[2025-07-16 08:24] LABS: Nucleated Red Blood Cells % 0.0 %
[2025-07-16 08:29] LABS: Hematocrit 29.1 % (36.0-46.0); Hemoglobin 9.9 g/dL (12.2-16.2); Mean Corpuscular Hemoglobin 26.9 pg (28.0-32.0); Mean Corpuscular Volume 79.5 fL (80.0-100.0)
[2025-07-16 08:48] LABS: Alanine Aminotransferase 17 U/L (7-40); Albumin 3.9 g/dL (3.2-4.8); Alkaline Phosphatase 114 U/L (46-116); Anion Gap 10 (5-15); BUN/Creatinine Ratio 16.2 (10.0-20.0); Blood Urea Nitrogen 11 mg/dL (9-23); Carbon Dioxide 24 mmol/L (20-31); Chloride 103 mmol/L (98-107); Potassium 4.3 mmol/L (3.5-5.1); Sodium 137 mmol/L (136-145); Total Protein 7.0 g/dL (5.7-8.2)
[2025-07-16 08:49] LABS: Bilirubin, Total 0.2 mg/dL (0.2-1.0); Calcium 8.6 mg/dL (8.7-10.4); Glucose 202 mg/dL (74-106)
[2025-07-16 09:00] VITALS: BP 134/81; PULSE 86; RESP 18; TEMP 98.2; O2SAT 98
--- NOTE | 2025-07-16 09:52 | DVHPN2 ---
Progress Note Date Seen: Jul 16, 2025 Medical Necessity Reason Pt with a Central, PICC or Fol: No Objective vital signs Vital Sign Date Time Temp Pulse Resp B/P (MAP) Pulse Ox O2 Delivery O2 Flow Rate FiO2 07/16/25 05:00 97.9 69 18 134/81 (98) 93 97.9 07/15/25 20:00 Room Air* 0 21 Total Intake and Output 07/15/25 07/15/25 07/16/25 15:00 23:00 07:00 Intake Total 100 ml 500 ml 550 ml Output Total 70 ml 40 ml Balance 30 ml 500 ml 510 ml medications Current Medications Medications Dose Ordered Sig/Eduardo Route Start Time Stop Time Status Last Admin Dose Admin Acetaminophen/ Hydrocodone Bitart 1 tab Q4HP PRN PO 07/13/25 11:45 07/14/25 08:37 1 TAB Ondansetron HCl 4 mg Q4HP PRN IV 07/13/25 11:45 Acetaminophen 650 mg Q6HP PRN PO 07/13/25 11:45 Morphine Sulfate 2 mg Q4HPRN PRN IV 07/13/25 11:45 Lactated Ringer's 1,000 ml @ 100 mls/hr Q10H IV 07/14/25 10:00 07/16/25 02:51 75 MLS/HR Potassium Chloride/Sodium Chloride 1,000 ml @ 120 mls/hr Q8H20M IV 07/15/25 12:00 Cefazolin Sodium/ Dextrose 50 ml @ 50 mls/hr Q8HR IV 07/15/25 14:00 07/16/25 05:27 50 MLS/HR Metronidazole 100 ml @ 100 mls/hr Q8HR IV 07/15/25 14:00 07/16/25 06:34 100 MLS/HR Hydromorphone HCl 2 mg Q4HPRN PRN IV 07/15/25 12:00 Diagnostic Test (Pha) 1 strip ACHS 07/15/25 17:00 07/16/25 05:27 1 STRIP Insulin Human Regular ACHS SC 07/15/25 17:00 07/16/25 06:44 3 UNITS Dextrose 50 ml UD PRN IV 07/15/25 16:00 laboratory and microbiology Laboratory Tests 07/16/25 06:44 Test 07/16/25 06:44 Range/Units Serum Glucose 202 H 74-106 mg/dL Problem List/Assessment/Plan Problem List/Assessment/Plan 07/16/25 feeling much better, tolerating po intake wounds clean drainage per ANDRIY drain serosanguineous. advance diet, teach care of drain, discharge, may shower in 72 hours Plan discussed with: Patient DANIELLE FONTAINE MD Jul 16, 2025 09:52
--- NOTE | 2025-07-16 11:55 | DVHDS2 ---
Discharge Summary Date of Admission Jul 13, 2025 at 11:36 Date of Discharge: Jul 16, 2025 Labs/Diagnostic Data: Laboratory Results Test 07/16/25 06:44 07/16/25 05:15 07/14/25 10:45 07/13/25 08:15 White Blood Count 16.8 10^3/uL (4.4-10.8) Red Blood Count 3.66 10^6/uL (4.0-5.20) Hemoglobin 9.9 g/dL (12.2-16.2) Hematocrit 29.1 % (36.0-46.0) Mean Corpuscular Volume 79.5 fL (80.0-100.0) Mean Corpuscular Hemoglobin 26.9 pg (28.0-32.0) Mean Corpuscular Hemoglobin Concent 33.9 g/dL (32.0-36.0) Red Cell Distribution Width 15.5 % (11.8-14.3) Platelet Count 374 10^3/uL (140-450) Mean Platelet Volume 8.3 fL (6.9-10.8) Neutrophils (%) (Auto) 87.9 % (37.0-80.0) Lymphocytes (%) (Auto) 6.2 % (10.0-50.0) Monocytes (%) (Auto) 5.8 % (0.0-12.0) Eosinophils (%) (Auto) 0.0 % (0.0-7.0) Basophils (%) (Auto) 0.1 % (0.0-2.0) Neutrophils # (Auto) 14.7 10 ^3/uL (1.6-8.6) Lymphocytes # (Auto) 1.0 10 ^3/uL (0.4-5.4) Monocytes # (Auto) 1.0 10 ^3/uL (0-1.3) Eosinophils # (Auto) 0 10 ^3/uL (0-0.8) Basophils # (Auto) 0 10 ^3/uL (0-0.2) Nucleated Red Blood Cells 0.0 % Sodium Level 137 mmol/L (136-145) Potassium Level 4.3 mmol/L (3.5-5.1) Chloride Level 103 mmol/L (98-107) Carbon Dioxide Level 24 mmol/L (20-31) Anion Gap 10 (5-15) Blood Urea Nitrogen 11 mg/dL (9-23) Creatinine 0.68 mg/dL (0.550-1.02) Glomerular Filtration Rate Calc 114 mL/min (>90) BUN/Creatinine Ratio 16.2 (10.0-20.0) Serum Glucose 202 mg/dL (74-106) Calcium Level 8.6 mg/dL (8.7-10.4) Total Bilirubin 0.2 mg/dL (0.2-1.0) Aspartate Amino Transferase (AST) 23 U/L (13-40) Alanine Aminotransferase (ALT) 17 U/L (7-40) Alkaline Phosphatase 114 U/L (46-116) Total Protein 7.0 g/dL (5.7-8.2) Albumin 3.9 g/dL (3.2-4.8) POC Glucose 189 mg/dl (70-106) Prothrombin Time 11.1 sec (9.3-11.8) Prothrombin Time INR 1.05 (0.9-1.15) Activated Partial Thromboplast Time 37.9 SEC (24.5-34.5) Urine Color Colorless (Yellow) Urine Clarity Turbid (Clear) Urine pH 6.5 (5.0-9.0) Urine Specific [place] 1.011 (1.001-1.035) Urine Protein 1+ (Negative) Urine Ketones Negative (Negative) Urine Blood 1+ /uL (Negative) Urine Nitrite Negative (Negative) Urine Bilirubin Negative (Negative) Urine Urobilinogen Normal mg/dL (Negative) Urine Leukocyte Esterase Trace /uL (Negative) Urine RBC 2 /hpf (0 - 4) Urine Microscopic WBC 2 /HPF (0-5) Urine Squamous Epithelial Cells Few /hpf (<5) Urine Bacteria Few /hpf (None Seen) Urine Mucus Few (None Seen) Urine Glucose 3+ mg/dL (Normal) Urine Test Negative (Negative) Other Laboratory Tests 07/16/25 06:44 Brief Hx & Hospital Course: 40 y.o female with PMHx of DM, presents to the ED for a chief complaint of right sided abdominal pain associated with nausea that started one day ago. Patient had meal from outside, few hours later pain started, intractable. Patient describes pain as sharp, constant, radiating to her back and rates it a 10/10 on the pain scale. Patient had associated nausea but no vomiting. She has had similar pain before but not this intensity. Patient denies any diarrhea, fever, chills, vomiting. 07/13 patient had outside meal, Boogie cooked, later has pain intractable 10/10 right upper quadrant. Banks sign negative, ultrasound done concern for cholelithiasis with gallbladder wall edema. 07/14: Surgery has evaluated the patient and no deciding for cholecystectomy. NPO midnight. Continue IV antibiotics, is no pulmonary disease or history of, RCRI score low, DA SI score low, pending EKG otherwise cleared for surgery. 07/15: Patient NPO from midnight, taken for cholecystectomy with surgical services today. We will follow up afterwards, defer diet continuation post surgery to surgery. 07/16: Patient is feeling well, tolerating diet, cleared by surgery for discharge, passing gas. Patient's vital signs stable stable for discharge as per plan below. Patient can continue Augmentin 875 twice daily for 3 days, recommend full liquid diet or similar at least 1 week, Zofran 4 mg t.i.d. prn 20 tablets for nausea, [place] 5 t.i.d. prn 30 tabs for pain as 3rd line (1st line Tylenol, second-line ibuprofen), ANDRIY drain to be emptied daily, 1 week follow up with surgery to remove ANDRIY drain and surgical follow up. Continue abdominal binder, we will be removed with surgery outpatient. Follow up with PCP to review discharge, docusate 100 mg twice daily 20 days. Diagnosis: Symptomatic cholelithiasis and cholecystitis, s/p laparoscopic cholecystectomy Intractable abdominal pain due to above , resolved Leukocytosis Anemia, microcytic, Tomas likely Diabetes with hyperglycemia ALP elevated Asymptomatic bacteriuria Glucosuria Hypertension, uncontrolled discharge plan: Augmentin 875 twice daily for 3 days recommend full liquid diet or similar at least 1 week Zofran 4 mg t.i.d. prn 20 tablets for nausea docusate 100 mg twice daily 20 days [place] 5 t.i.d. prn 30 tabs for pain as 3rd line (1st line Tylenol, second-line ibuprofen) ANDRIY drain to be emptied daily, 1 week follow up with surgery to remove ANDRIY drain and surgical follow up. Continue abdominal binder, we will be removed with surgery outpatient. Follow up with PCP to review discharge Condition at Discharge: Fair Final Diagnosis/Problems List Symptomatic cholelithiasis and cholecystitis, s/p laparoscopic cholecystectomy Intractable abdominal pain due to above , resolved Leukocytosis Anemia, microcytic, Tomas likely Diabetes with hyperglycemia ALP elevated Asymptomatic bacteriuria Glucosuria Hypertension, uncontrolled Discharge Disposition: Home Discharge Instruct/Medications Scheduled Ergocalciferol (Vitamin D), 1 CAP PO QWEEKLY, (Reported) Metformin Hydrochloride (Metformin Hcl Er), 1 TAB PO DAILY, (Reported) Miscellaneous Medications Rosuvastatin Calcium (Rosuvastatin Calcium), 1 TAB PO, (Reported) Discharge Statement: "Patient was advised to return to the ER or call 911 if any headaches, dizziness, shortness of breath, chest pain, abdominal pain, bleeding, fevers, or worsening of medical condition. Patient was counseled about treatment plan, medications, possible side effects, patientverbalized understanding. All questions were answered to the best of my ability. This discharge took greater then 30 minutes in planning, reviewing documentation, counseling the patient, and discussing with other team members." ASSESSMENT ASSESSMENT Assessment Date of Service: Jul 16, 2025 Billing Provider: DEEPA GARCIA MD Common Visit Codes: [id number] DISCH DAY >30min DEEPA GARCIA MD Jul 16, 2025 11:54
[2025-07-16 13:01] VITALS: BP 163/67; PULSE 81; RESP 18; TEMP 98.5; O2SAT 95
[2025-07-16] MEDS ORDERED: HYDR-4902 PO (14:39)
[2025-07-16] MEDS ORDERED: ZOFR4T PO (14:39)
[2025-07-16] MEDS ORDERED: DOCU-265 PO (14:39)
[2025-07-16] MEDS ORDERED: AUG875T PO (14:39)
[2025-07-16 17:00] VITALS: BP 142/79; PULSE 89; RESP 18; TEMP 98.4; O2SAT 97
== END 2025-07-16 17:45 | disposition home or self-care (01) | DRG 418 ==
LOC: ER 05:47 → OVERFLOW 11:36 → TELE-EAST 14:05
PROVIDERS: ADMIT Student in an Organized Health Care Education/Training Program; ATTEND Student in an Organized Health Care Education/Training Program
PROC: 0FT44ZZ Resection of Gallbladder, Percutaneous Endoscopic Approach (ICD-10-PCS; principal; 2025-07-15 10:24)
DX: K80.10 Calculus of gallbladder with chronic cholecystitis without obstruction (principal); Z68.41 Body mass index [BMI] 40.0-44.9, adult; E11.65 Type 2 diabetes mellitus with hyperglycemia; I10 Essential (primary) hypertension; D50.9 Iron deficiency anemia, unspecified; D72.829 Elevated white blood cell count, unspecified; E66.01 Morbid (severe) obesity due to excess calories; K82.8 Other specified diseases of gallbladder; Z80.6 Family history of leukemia; Z83.3 Family history of diabetes mellitus; Z82.49 Family history of ischemic heart disease and other diseases of the circulatory system; Z79.899 Other long term (current) drug therapy
CPT/HCPCS: 36415; 76705; 80053; 81001; 81025; 82962; 85025; 85610; 85730; 86850; 86900; 86901; 87070; 87075; 87205; 93005; 96365; 96372; G0378; J0131; J1100; J1815; J1885; J2003; J2250; J2405; J2704; J3490

== ENCOUNTER 2025-07-23 12:24 | Outpatient (CLI) | payer BC ==
[~2025-07-23 12:24] MED LIST: AUG875T PO; DOCU-265 PO; ERGO1CAP12 PO; HYDR-4902 PO; METF-1145 PO; ROSU20TA56 PO; ZOFR4T PO
[2025-07-23 12:54] LABS: Hematocrit 35.8 % (36.0-46.0); Hemoglobin 12.0 g/dL (12.2-16.2); Mean Corpuscular Hemoglobin 26.6 pg (28.0-32.0); Mean Corpuscular Volume 79.5 fL (80.0-100.0); Nucleated Red Blood Cells % 0.0 %
[2025-07-23 13:24] LABS: Alanine Aminotransferase 26 U/L (7-40); Albumin 4.7 g/dL (3.2-4.8); Anion Gap 12 (5-15); BUN/Creatinine Ratio 25.0 (10.0-20.0); Blood Urea Nitrogen 19 mg/dL (9-23); Calcium 10.0 mg/dL (8.7-10.4); Carbon Dioxide 25 mmol/L (20-31); Chloride 103 mmol/L (98-107); Potassium 4.0 mmol/L (3.5-5.1); Sodium 140 mmol/L (136-145)
[2025-07-23 13:25] LABS: Alkaline Phosphatase 124 U/L (46-116); Bilirubin, Total 0.2 mg/dL (0.2-1.0); Glucose 136 mg/dL (74-106); Total Protein 8.3 g/dL (5.7-8.2)
== END 2025-07-23 17:00 | disposition home or self-care (01) ==
LOC: LAB 12:24
PROVIDERS: ATTEND Internal Medicine
DX: E11.42 Type 2 diabetes mellitus with diabetic polyneuropathy (principal)
CPT/HCPCS: 36415; 80053; 85025